=== PATIENT | female | born 1990 | race Caucasian/White ===

== ENCOUNTER 2020-05-25 14:52 | Emergency (ER) | payer BC ==
[2020-05-25 14:56] VITALS: RESP 18
[2020-05-25 15:33] LABS: Basophils % (A) 0 %; Eosinophils # (A) 0.3 k/uL (0-0.7); Eosinophils % (A) 3 %; HCT 42.3 % (34.0-46.0); HGB 14.2 gm/dL (11.4-16.0); Lymphocytes # (A) 1.9 k/uL (1.0-4.8); Lymphocytes % (A) 25 %; MCH 31.1 pg (25.0-35.0); MCHC 33.7 g/dL (31.0-37.0); MCV 92.4 fL (80.0-100.0); Mean Platelet Volume 7.6; Monocytes # (A) 0.3 k/uL (0-1.0); Monocytes % (A) 4 %; Neutrophils # (A) 5.1 k/uL (1.3-7.7); Neutrophils % (A) 67 %; Platelet Count 210 k/uL (150-450); RBC 4.58 m/uL (3.80-5.40); RDW 12.5 % (11.5-15.5); WBC 7.7 k/uL (3.8-10.6)
[2020-05-25 15:38] LABS: INR 0.9 (<1.2)
[2020-05-25 15:39] LABS: Partial Thromboplastin Time 22.8 sec (22.0-30.0); Prothrombin Time 9.9 sec (9.0-12.0)
[2020-05-25 15:40] LABS: ALT 13 U/L (4-34); AST 24 U/L (14-36); African American GFR (CKD) >90 (>60 ml/min/1.73 sqM); Albumin 4.3 g/dL (3.5-5.0); Alkaline Phosphatase 67 U/L (38-126); Anion Gap 8 mmol/L; Blood Urea Nitrogen 10 mg/dL (7-17); Calcium 9.8 mg/dL (8.4-10.2); Carbon Dioxide 22 mmol/L (22-30); Chloride 109 mmol/L (98-107); Glucose 91 mg/dL (74-99); Non-African American GFR(CKD) >90 (>60 ml/min/1.73 sqM); Sodium 139 mmol/L (137-145); Total Bilirubin 0.7 mg/dL (0.2-1.3); Total Protein 7.6 g/dL (6.3-8.2)
--- NOTE | 2020-05-25 15:43 | ED ---
Extremity Problem HPI - General Source: patient Mode of arrival: wheelchair Limitations: no limitations <Cecy Clark - Last Filed: 05/25/20 17:21> <Lourdes Green - Last Filed: 05/26/20 00:11> - General Chief complaint: Extremity Problem,Nontraumatic Stated complaint: Blood clot in Right knee Time Seen by Provider: 05/25/20 14:58 - History of Present Illness Initial comments: 30-year-old female presenting for positive DVT of the right knee. Patient states that she had some discomfort on the right knee showed a evaluation by her orthopedic surgeon who states everything looked good aside from possible concern for DVT patient was sent for outpatient ultrasound which was positive or popliteal DVT. Patient denies any history. She did have recent orthopedic surgery for removal of bone spur. Patient states that she did not know she had a fever with a temperature of 100.8 upon arrival. Patient denies a cough congestion and upper respiratory symptoms redness or swelling of the surgical sites or drainage. Patient denies any shortness of breath chest pain or pain with deep inspiration. Denies . Patient has no additional complaints, she states she was told to come her due to US being positive. (Cecy Clark) - Related Data Previous Rx's Medication Instructions Recorded Apixaban [Eliquis Starter Pack 0 mg PO DIRECTED 30 Days #1 pack 05/25/20 (for VTE)] Allergies Allergy/AdvReac Type Severity Reaction Status Date / Time No Known Allergies Allergy Verified 05/25/20 14:56 Review of Systems ROS Other: All systems not noted in ROS Statement are negative. <Cecy Clark - Last Filed: 05/25/20 17:21> ROS Other: All systems not noted in ROS Statement are negative. <Lourdes Green - Last Filed: 05/26/20 00:11> ROS Statement: Those systems with pertinent positive or pertinent negative responses have been documented in the HPI. Past Medical History History of Any Multi-Drug Resistant Organisms: None Reported Past Surgical History: Orthopedic Surgery Past Psychological History: No Psychological Hx Reported Smoking Status: Never smoker Past Alcohol Use History: Occasional Past Drug Use History: None Reported <Cecy Clark - Last Filed: 05/25/20 17:21> General Exam Limitations: no limitations <Cecy Clark - Last Filed: 05/25/20 17:21> - General Exam Comments Initial Comments: General: The patient is awake and alert, in no distress Eye: Pupils are equal, round and reactive to light, extra-ocular movements are intact. No nystagmus. There is normal conjunctiva bilaterally. No signs of icterus. Cardiovascular: There is a regular rate and rhythm. No murmur, rub or gallop is appreciated. Respiratory: Lungs are clear to auscultation, respirations are non-labored, breath sounds are equal. No wheezes, stridor, rales, or rhonchi. Musculoskeletal: On inspection of leg b/l obvious right knee swelling in comparison to the left. posterior calf/knee tenderness. Normal ROM. Strength 5/5. Sensation intact. Radial pulses equal bilaterally 2+. Neurological: A&O x 3. CN II-XII intact grossly, There are no obvious motor or sensory deficits. Coordination appears grossly intact. Speech is normal. Skin: Skin is warm and dry and no rashes or lesions are noted. No redness or swelling of ankle. No drainage. incision site appear to be healed, no drainage. Psychiatric: Cooperative, appropriate mood & affect, normal judgment. (Cecy Clark) Course Vital Signs 05/25/20 05/25/20 14:53 17:01 Temperature 100.8 F H 98.4 F Pulse Rate 111 H 97 Respiratory 18 18 Rate Blood Pressure 147/97 126/81 O2 Sat by Pulse 98 100 Oximetry Medical Decision Making - Lab Data Result diagrams: 05/25/20 15:19 05/25/20 15:19 <Cecy Clark - Last Filed: 05/25/20 17:21> - Lab Data Result diagrams: 05/25/20 15:19 05/25/20 15:19 <Lourdes Green - Last Filed: 05/26/20 00:11> - Medical Decision Making + DVT patient. Distal. Labs stable. No hx of GI bleed, brain bleed, CVA, no recent trauma. Patient denies chest pain or SOB. Denies pain with deep inspiration. Given HR initially elevated CTA obtained, no obvious PE but overall poor study-no evidence to suggest a central PE. Patient does not endorse CP, SOB or pain with deep inspiration. Patient HR normalized, oxygenating well. I believe cause most likely due to recent surgical procedure pt also on control. Recommended discontinuing oral hormones until patient DVT resolved, using alternative control methods. Patient agreeable. Patient case discussed with attending Dr. Green who is agreeable to discharge with oral anticoagulation, strict return parameters. Patient educated on bleeding risks/risk of PE. Patient discharged appearing well. PCP f/u this week recommended and pt has scheduled orthopedic f/u on Sunday. (Cecy Clark) I was available for consultation in the emergency department. The history and physical exam were done by the midlevel provider. I was consulted for this patients care. I reviewed the case with the midlevel provider and based on their presentation of the patient, I agree with the assessment, medical decision making and plan of care as documented. Chart was dictated using Next audience dictation software. Attempts were made to correct any dictation errors however some typographical errors may persist. Patient was seen during a national state of emergency due to the Covid-19 pandemic. (Lourdes Green) - Lab Data Lab Results 05/25/20 05/25/20 05/25/20 Range/Units 15:19 15:19 15:19 WBC 7.7 (3.8-10.6) k/uL RBC 4.58 (3.80-5.40) m/uL Hgb 14.2 (11.4-16.0) gm/dL Hct 42.3 (34.0-46.0) % MCV 92.4 (80.0-100.0) fL MCH 31.1 (25.0-35.0) pg MCHC 33.7 (31.0-37.0) g/dL RDW 12.5 (11.5-15.5) % Plt Count 210 (150-450) k/uL Neutrophils % 67 % Lymphocytes % 25 % Monocytes % 4 % Eosinophils % 3 % Basophils % 0 % Neutrophils # 5.1 (1.3-7.7) k/uL Lymphocytes # 1.9 (1.0-4.8) k/uL Monocytes # 0.3 (0-1.0) k/uL Eosinophils # 0.3 (0-0.7) k/uL Basophils # 0.0 (0-0.2) k/uL PT 9.9 (9.0-12.0) sec INR 0.9 (<1.2) APTT 22.8 (22.0-30.0) sec Sodium 139 (137-145) mmol/L Potassium 4.0 (3.5-5.1) mmol/L Chloride 109 H (98-107) mmol/L Carbon Dioxide 22 (22-30) mmol/L Anion Gap 8 mmol/L BUN 10 (7-17) mg/dL Creatinine 0.68 (0.52-1.04) mg/dL Est GFR (CKD-EPI)AfAm >90 (>60 ml/min/1.73 sqM) Est GFR (CKD-EPI)NonAf >90 (>60 ml/min/1.73 sqM) Glucose 91 (74-99) mg/dL Plasma Lactic Acid Trung (0.7-2.0) mmol/L Calcium 9.8 (8.4-10.2) mg/dL Total Bilirubin 0.7 (0.2-1.3) mg/dL AST 24 (14-36) U/L ALT 13 (4-34) U/L Alkaline Phosphatase 67 (38-126) U/L Troponin I (0.000-0.034) ng/mL Total Protein 7.6 (6.3-8.2) g/dL Albumin 4.3 (3.5-5.0) g/dL Urine HCG, Qual (Not Detectd) 05/25/20 05/25/20 05/25/20 Range/Units 15:19 15:19 15:38 WBC (3.8-10.6) k/uL RBC (3.80-5.40) m/uL Hgb (11.4-16.0) gm/dL Hct (34.0-46.0) % MCV (80.0-100.0) fL MCH (25.0-35.0) pg MCHC (31.0-37.0) g/dL RDW (11.5-15.5) % Plt Count (150-450) k/uL Neutrophils % % Lymphocytes % % Monocytes % % Eosinophils % % Basophils % % Neutrophils # (1.3-7.7) k/uL Lymphocytes # (1.0-4.8) k/uL Monocytes # (0-1.0) k/uL Eosinophils # (0-0.7) k/uL Basophils # (0-0.2) k/uL PT (9.0-12.0) sec INR (<1.2) APTT (22.0-30.0) sec Sodium (137-145) mmol/L Potassium (3.5-5.1) mmol/L Chloride (98-107) mmol/L Carbon Dioxide (22-30) mmol/L Anion Gap mmol/L BUN (7-17) mg/dL Creatinine (0.52-1.04) mg/dL Est GFR (CKD-EPI)AfAm (>60 ml/min/1.73 sqM) Est GFR (CKD-EPI)NonAf (>60 ml/min/1.73 sqM) Glucose (74-99) mg/dL Plasma Lactic Acid Trung 1.2 (0.7-2.0) mmol/L Calcium (8.4-10.2) mg/dL Total Bilirubin (0.2-1.3) mg/dL AST (14-36) U/L ALT (4-34) U/L Alkaline Phosphatase (38-126) U/L Troponin I <0.012 (0.000-0.034) ng/mL Total Protein (6.3-8.2) g/dL Albumin (3.5-5.0) g/dL Urine HCG, Qual Not Detected (Not Detectd) Disposition Is patient prescribed a controlled substance at d/c from ED?: No Time of Disposition: 16:34 <Cecy Clark - Last Filed: 05/25/20 17:21> <Lourdes Green - Last Filed: 05/26/20 00:11> Clinical Impression: Deep vein thrombosis (DVT) of popliteal vein of right lower extremity, Right leg swelling Disposition: HOME SELF-CARE Condition: Good Instructions (If sedation given, give patient instructions): Deep Vein Thrombosis (ED), Safe Use of Anticoagulants (ED), Blood Thinners (ED) Additional Instructions: Please use medication as discussed. Please follow-up with family doctor in the next 2 days, orthopedic surgery on sunday as scheduled -IMMEDIATE RETURN TO ER FOR SHORTNESS OF BREATH, CHEST PAIN, PAIN IN CHEST/RIBS WITH DEEP BREATH, INCREASING LEG PAIN, FALLS OR TRAUMA TO HEAD, RECTAL BLEEDING, LIGHTHEADEDNESS. Please return to emergency room if the symptoms increase or worsen or for any other concerns. Prescriptions: Apixaban [Eliquis Starter Pack (for VTE)] 0 mg PO DIRECTED 30 Days #1 pack Referrals: Carlos Sethi MD [Primary Care Provider] - 1-2 days
--- NOTE | 2020-05-25 16:21 | CT ---
EXAMINATION TYPE: CT chest angio for PE DATE OF EXAM: 05/25/2020 COMPARISON: Ultrasound 05/25/2020 HISTORY: DVT, low-grade fever CT DLP: 831 mGycm Automated exposure control for dose reduction was used. CONTRAST: CT Chest for pulmonary embolism performed with with IV Contrast, patient injected with 80 mL of Isovu e 370. FINDINGS: LUNGS: The lungs are grossly clear, there is no concerning parenchymal mass or nodule identified. T here is no pleural effusion or pneumothorax seen. The tracheobronchial tree is patent. MEDIASTINUM: There is poor enhancement of the pulmonary artery and its branches, there is no CT evide nce for pulmonary embolism. There are no greater than 1 cm hilar or mediastinal lymph nodes. No pe ricardial effusion is seen. AORTA: No additional significant abnormality is seen. OTHER: No additional significant abnormality is seen. IMPRESSION: Exam is limited. Cannot exclude pulmonary embolism. No central embolism is identified.
[2020-05-25] MEDS ORDERED: APIXABAN 5 MG TAB PO STA (16:32)
[2020-05-25 17:03] VITALS: BP 126/81; PULSE 97; TEMP 98.4
== END 2020-05-25 17:03 | disposition home or self-care (01) ==
LOC: EC 14:52
DX: I82.431 Acute embolism and thrombosis of right popliteal vein (principal)
CPT/HCPCS: 36415; 93005; 80053; 83605; 84484; 85025; 85610; 85730; 81025; 71275; 99284; Q9967

== ENCOUNTER → 2020-05-25 | Outpatient (CLI) | payer BC ==
--- NOTE | 2020-05-25 14:51 | US ---
EXAMINATION TYPE: US venous doppler duplex LE RT DATE OF EXAM: 05/25/2020 2:35 PM COMPARISON: NONE CLINICAL HISTORY: M79.669 CALF PAIN,M79.89 CALF SWELLING. Right leg swelling SIDE PERFORMED: Right TECHNIQUE: The lower extremity deep venous system is examined utilizing real time linear array sonog ibeth with graded compression, doppler sonography and color-flow sonography. VESSELS IMAGED: External Iliac Vein (EIV) Common Femoral Vein Deep Femoral Vein Greater Saphenous Vein * Femoral Vein Popliteal Vein Small Saphenous Vein * Proximal Calf Veins (* superficial vessels) Difficult and limited study due to patient body habitus Right Leg: Positive for DVT popliteal vein Grayscale, color doppler, spectral doppler imaging performed of the deep veins of the right lower ext remity. Hyperechoic material expands the lumen with diminished color flow beginning proximal poplitea l vein level extending through distal vein into the proximal calf veins. IMPRESSION: Acute DVT fell present above and below knee on images saved. Results called to Alycia at [facility] at end of exam by certified hyperbaric technologist.
== END | disposition home or self-care (01) ==
LOC: RADUSWWP 14:04
PROVIDERS: ATTEND Orthopaedic Surgery Foot and Ankle Surgery
DX: I82.431 Acute embolism and thrombosis of right popliteal vein (principal); Z47.89 Encounter for other orthopedic aftercare

== ENCOUNTER → 2020-10-22 | Outpatient (CLI) | payer BC ==
--- NOTE | 2020-10-22 15:10 | US ---
EXAMINATION TYPE: US venous doppler duplex LE BI DATE OF EXAM: 10/22/2020 2:49 PM COMPARISON: 05/25/2020 CLINICAL HISTORY: I82.431 Acute embolism and thrombosis of right pop. Hx of DVT in rt pop v on blood thinners. SIDE PERFORMED: Bilateral TECHNIQUE: The lower extremity deep venous system is examined utilizing real time linear array sonog ibeth with graded compression, doppler sonography and color-flow sonography. VESSELS IMAGED: Common Femoral Vein Deep Femoral Vein Greater Saphenous Vein * Femoral Vein Popliteal Vein Small Saphenous Vein * Proximal Calf Veins (* superficial vessels) Right Leg: Negative for DVT no thrombus visualized in Popliteal Vein as seen on previous exam. Left Leg: Negative for DVT IMPRESSION: Grayscale, color doppler, spectral doppler imaging performed of the deep veins of the lo wer extremities. There is normal flow, compressibility, vascular waveforms.
== END | disposition home or self-care (01) ==
LOC: RADUSWWP 14:17
PROVIDERS: ATTEND Internal Medicine Hematology & Oncology
DX: I82.431 Acute embolism and thrombosis of right popliteal vein (principal)
CPT/HCPCS: 93970